=== PATIENT | male | born 1975 | race African-American/Black ===

== ENCOUNTER 2018-03-16 16:45 | Inpatient (IN) ==
[2018-03-16] MEDS ORDERED: KETOROLAC 30 MG/1 ML VIAL IV STA (18:33)
[2018-03-16] MEDS ORDERED: METOCLOPRAMIDE 10 MG/2 ML VIAL IV STA (18:33)
[2018-03-16] MEDS ORDERED: diphenhydrAMINE 50 MG/1 ML VIAL IV STA (18:33)
[2018-03-16] MEDS ORDERED: SODIUM CHLORIDE 0.9% 1,000 ML IV STA (18:33)
[2018-03-16] MEDS ORDERED: METOCLOPRAMIDE 10 MG/2 ML VIAL ONE (19:00)
[2018-03-16] MEDS ORDERED: diphenhydrAMINE 50 MG/1 ML VIAL ONE (19:00)
[2018-03-16] MEDS ORDERED: KETOROLAC 30 MG/1 ML VIAL ONE (19:00)
[2018-03-16 19:05] LABS: Basophils % 0.5 % (0.0-0.8); Eosinophils % 0.3 % (0.00-10.9); Hematocrit 48.5 VOL% (42.0-52.0); Immature Granulocytes % 0.5 %; Immature Granulocytes Absolute 0.03 #; Lymphocytes # 1.2 10*3/uL (1.4-4.0); Lymphocytes % 17.6 % (21.2-54.2); Mean Corpuscular Hemoglobin 27 PG (27-34); Mean Corpuscular Volume 82.2 FL (87-102); Mean Platelet Volume 11.1 FL (9.6-12.0); Monocytes # 0.5 10*3/uL (0.11-0.8); Monocytes % 7.6 % (1.7-12.7); Neutrophils # 4.8 10*3/uL (1.4-7.4); Neutrophils % 73.5 % (38.7-73.9); Platelet Count 253 T/CUMM (130-400); Red Cell Distribution Width 12.5 % (9.3-17.3); White Blood Count 6.5 T/CUMM (4-12)
[2018-03-16 19:09] LABS: Apearance,Urine CLEAR (Clear); Bilirubin,Urine Negative (Negative); Blood, Urine Negative (Negative); Glucose,Urine (UA) Negative (Negative); Ketones,Urine 5 mg/dL (Negative); Nitrite,Urine Negative (Negative); Protein,Urine Negative; Urine Color Straw (Yellow); Urine Specific Gravity 1.004 (1.001-1.035); Urine Urobilinogen < 2.0 EU/DL (0.2-1.0); WBC,Urine <1 /HPF (0-6)
[2018-03-16 19:32] LABS: Lymphocytes 19 % (20-55); Platelet Estimate Normal; Segmented Neutrophils 77 % (50-85); Total Cells Counted 100
[2018-03-16 19:38] LABS: Albumin 4.4 G/DL (3.4-5.0); Bilirubin,Total 0.8 MG/DL (0.2-1.0); Calcium 9.5 MG/DL (8.5-10.1); Osmolality,Calculated 268.4 MOS/KG (273-304); Potassium 3.7 MMOL/L (3.5-5.1); Thyroid Stimulating Hormone 0.415 uIU/ml (0.358-3.74); Total Protein 8.7 G/DL (6.4-8.3)
[2018-03-16] MEDS ORDERED: ACETAMINOPHEN 325 MG/10.15 ML UDCUP PO STA (19:41)
[2018-03-16] MEDS ORDERED: ACETAMINOPHEN 500 MG TABLET PO STA (19:42)
[2018-03-16] MEDS ORDERED: ACETAMINOPHEN 500 MG TABLET ONE (19:46)
[2018-03-16] MEDS ORDERED: SUMAtriptan 6 MG/0.5 ML VIAL SUBCUT STA (20:28)
[2018-03-16] MEDS ORDERED: diphenhydrAMINE CAP 25 MG CAPSULE PO PRN (21:46)
[2018-03-16] MEDS ORDERED: ONDANSETRON 4 MG/2 ML VIAL IV PRN (21:46)
[2018-03-16] MEDS ORDERED: traZODone 50 MG TABLET PO PRN (21:46)
[2018-03-16] MEDS ORDERED: cefTRIAXone 1,000 MG in SYRINGE 1 EACH IV SCH (22:00)
[2018-03-16] MEDS ORDERED: ACYCLOVIR INJ 1,000 MG in SODIUM CHLORIDE 0.9% 250 ML IV SCH (22:00)
[2018-03-17] MEDS: ATORVASTATIN 40 MG TABLET PO SCH ×2 (00:36→21:15)
[2018-03-17] MEDS: ACYCLOVIR INJ 1,000 MG in SODIUM CHLORIDE 0.9% 250 ML IV SCH ×3 (00:41→23:51)
[2018-03-17] MEDS: VANCOMYCIN INJ 1,500 MG in SODIUM CHLORIDE 0.9% 500 ML IV SCH ×2 (03:04→14:41)
[2018-03-17] MEDS: ACETAMINOPHEN 325 MG TABLET PO PRN ×2 (05:42→11:20)
[2018-03-17 07:03] LABS: Risk Ratio 6.29; VLDL CHOLESTEROL 42.8 MG/DL
[2018-03-17] MEDS: hydroCHLOROthiazide 12.5 MG CAPSULE PO SCH (08:21)
[2018-03-17] MEDS: ASPIRIN 325 MG TABLET PO SCH (08:21)
[2018-03-17] MEDS: amLODIPine 10 MG TABLET PO SCH (08:21)
[2018-03-17 08:34] LABS: Barbiturates Screen,Urine Negative (Negative); Benzodiazepines Screen,Urine Negative (Negative); Cannabinoid Screen,Urine Negative (Negative); Opiate Screen,Urine Negative (Negative); Phencyclidine Screen,Urine Negative (Negative)
[2018-03-17] MEDS: cefTRIAXone 2,000 MG in SYRINGE 1 EACH IV SCH (14:41)
[2018-03-17 15:00] LABS: Glucose,CSF 86 MG/DL (40-70)
[2018-03-17 15:43] LABS: Lymphocytes,CSF 44 %; Neutrophils,CSF 56 %
[2018-03-17 15:44] LABS: Red Blood Cell,CSF 9 C/CUMM; White Blood Cell,CSF 115 C/CUMM
[2018-03-17 17:34] LABS: Appearance,CSF Clear
[2018-03-17] MEDS ORDERED: ACETAMINOPHEN 325 MG TABLET PO PRN (18:52)
[2018-03-17] MEDS: AMPICILLIN INJ 2,000 MG in SODIUM CHLORIDE 0.9% 100 ML IV SCH (19:43)
[2018-03-18] MEDS: cefTRIAXone 2,000 MG in SYRINGE 1 EACH IV SCH ×2 (02:10→13:01)
[2018-03-18] MEDS: AMPICILLIN INJ 2,000 MG in SODIUM CHLORIDE 0.9% 100 ML IV SCH ×3 (02:14→13:02)
[2018-03-18] MEDS: VANCOMYCIN INJ 1,500 MG in SODIUM CHLORIDE 0.9% 500 ML IV SCH (03:24)
[2018-03-18 05:53] LABS: Basophils % 0.3 % (0.0-0.8); Eosinophils % 0.1 % (0.00-10.9); Hematocrit 41.9 VOL% (42.0-52.0); Hemoglobin 13.5 GM/DL (14.0-18.0); Immature Granulocytes % 0.3 %; Immature Granulocytes Absolute 0.03 #; Lymphocytes # 1.8 10*3/uL (1.4-4.0); Lymphocytes % 18.1 % (21.2-54.2); Mean Corpuscular HGB Conc 32.2 GM/DL (32-36); Mean Corpuscular Hemoglobin 27 PG (27-34); Mean Platelet Volume 11.4 FL (9.6-12.0); Monocytes # 1.3 10*3/uL (0.11-0.8); Monocytes % 13.6 % (1.7-12.7); Neutrophils # 6.6 10*3/uL (1.4-7.4); Neutrophils % 67.6 % (38.7-73.9); Platelet Count 232 T/CUMM (130-400); Red Blood Count 5.05 MC/CUMM (3.8-5.5); Red Cell Distribution Width 12.7 % (9.3-17.3); White Blood Count 9.8 T/CUMM (4-12)
[2018-03-18 06:19] LABS: Calcium 8.4 MG/DL (8.5-10.1); Osmolality,Calculated 275.7 MOS/KG (273-304); Potassium 3.5 MMOL/L (3.5-5.1)
[2018-03-18] MEDS: ASPIRIN 325 MG TABLET PO SCH (08:08)
[2018-03-18] MEDS: amLODIPine 10 MG TABLET PO SCH (08:08)
[2018-03-18] MEDS: hydroCHLOROthiazide 12.5 MG CAPSULE PO SCH (08:08)
[2018-03-18] MEDS: ACYCLOVIR INJ 1,000 MG in SODIUM CHLORIDE 0.9% 250 ML IV SCH (10:37)
[2018-03-18] MEDS: VANCOMYCIN INJ 1,750 MG in SODIUM CHLORIDE 0.9% 500 ML IV SCH (16:04)
[2018-03-18] MEDS: ATORVASTATIN 40 MG TABLET PO SCH (21:49)
[2018-03-19] MEDS: AMPICILLIN INJ 2,000 MG in SODIUM CHLORIDE 0.9% 100 ML IV SCH ×4 (00:03→14:38)
[2018-03-19] MEDS: ACYCLOVIR INJ 1,000 MG in SODIUM CHLORIDE 0.9% 250 ML IV SCH ×2 (00:04→12:19)
[2018-03-19] MEDS: cefTRIAXone 2,000 MG in SYRINGE 1 EACH IV SCH ×2 (03:34→15:02)
[2018-03-19 05:54] LABS: Basophils % 0.3 % (0.0-0.8); Eosinophils % 0.2 % (0.00-10.9); Hematocrit 42.7 VOL% (42.0-52.0); Hemoglobin 14.3 GM/DL (14.0-18.0); Immature Granulocytes % 0.5 %; Immature Granulocytes Absolute 0.05 #; Lymphocytes # 1.4 10*3/uL (1.4-4.0); Lymphocytes % 15.7 % (21.2-54.2); Mean Corpuscular HGB Conc 33.5 GM/DL (32-36); Mean Corpuscular Hemoglobin 27 PG (27-34); Mean Corpuscular Volume 80.3 FL (87-102); Mean Platelet Volume 10.9 FL (9.6-12.0); Monocytes # 0.9 10*3/uL (0.11-0.8); Monocytes % 9.3 % (1.7-12.7); Neutrophils # 6.8 10*3/uL (1.4-7.4); Platelet Count 265 T/CUMM (130-400); Red Blood Count 5.32 MC/CUMM (3.8-5.5); Red Cell Distribution Width 12.4 % (9.3-17.3); White Blood Count 9.2 T/CUMM (4-12)
[2018-03-19 06:24] LABS: Calcium 8.6 MG/DL (8.5-10.1); Osmolality,Calculated 274.8 MOS/KG (273-304); Potassium 3.6 MMOL/L (3.5-5.1)
[2018-03-19 07:19] LABS: HIV Antigen/Antibody Result Nonreactive (Nonreactive)
[2018-03-19] MEDS: ASPIRIN 325 MG TABLET PO SCH (08:59)
[2018-03-19] MEDS: amLODIPine 10 MG TABLET PO SCH (08:59)
[2018-03-19] MEDS: hydroCHLOROthiazide 12.5 MG CAPSULE PO SCH (08:59)
[2018-03-19] MEDS: VANCOMYCIN INJ 1,750 MG in SODIUM CHLORIDE 0.9% 500 ML IV SCH ×2 (09:02→21:49)
[2018-03-19] MEDS ORDERED: ZIPRASIDONE 20 MG/1 ML VIAL IM ONE (09:09)
[2018-03-19] MEDS: methylPREDNISolone SOD SUC 125 MG/2 ML VIAL IV SCH ×2 (10:21→21:46)
[2018-03-19] MEDS ORDERED: SODIUM CHLORIDE 0.65% NASAL SPRAY 45 ML BOTTLE BOTH NARES PRN (12:03)
[2018-03-19] MEDS ORDERED: DEXTROSE 50% 25 GM/50 ML VIAL IV PRN (15:05)
[2018-03-19] MEDS ORDERED: GLUCAGON 1 MG VIAL IM PRN (15:05)
[2018-03-19] MEDS: INSULIN LISPRO 100 UNIT/ML SUBCUT SCH (16:21)
[2018-03-19] MEDS: OMEGA 3 ACID ETHYL ESTERS 1 GM CAPSULE PO SCH (16:22)
[2018-03-19] MEDS: ATORVASTATIN 40 MG TABLET PO SCH (21:46)
[2018-03-20] MEDS: cefTRIAXone 2,000 MG in SYRINGE 1 EACH IV SCH ×2 (01:58→18:09)
[2018-03-20] MEDS: ACYCLOVIR INJ 1,000 MG in SODIUM CHLORIDE 0.9% 250 ML IV SCH ×2 (01:59→12:03)
[2018-03-20 06:36] LABS: Basophils % 0.1 % (0.0-0.8); Hematocrit 40.8 VOL% (42.0-52.0); Hemoglobin 13.5 GM/DL (14.0-18.0); Immature Granulocytes % 0.7 %; Immature Granulocytes Absolute 0.09 #; Lymphocytes % 8.6 % (21.2-54.2); Mean Corpuscular HGB Conc 33.1 GM/DL (32-36); Mean Corpuscular Hemoglobin 27 PG (27-34); Mean Corpuscular Volume 80.8 FL (87-102); Mean Platelet Volume 11.7 FL (9.6-12.0); Monocytes # 0.4 10*3/uL (0.11-0.8); Monocytes % 3.1 % (1.7-12.7); Neutrophils # 10.6 10*3/uL (1.4-7.4); Neutrophils % 87.5 % (38.7-73.9); Platelet Count 287 T/CUMM (130-400); Red Blood Count 5.05 MC/CUMM (3.8-5.5); Red Cell Distribution Width 12.1 % (9.3-17.3); White Blood Count 12.1 T/CUMM (4-12)
[2018-03-20 07:03] LABS: Calcium 8.5 MG/DL (8.5-10.1); Potassium 3.9 MMOL/L (3.5-5.1)
[2018-03-20] MEDS: INSULIN LISPRO 100 UNIT/ML SUBCUT SCH ×3 (08:00→18:13)
[2018-03-20] MEDS: ASPIRIN 325 MG TABLET PO SCH (09:02)
[2018-03-20] MEDS: methylPREDNISolone SOD SUC 125 MG/2 ML VIAL IV SCH ×2 (09:03→21:50)
[2018-03-20] MEDS: VANCOMYCIN INJ 1,750 MG in SODIUM CHLORIDE 0.9% 500 ML IV SCH ×2 (09:04→21:53)
[2018-03-20] MEDS: amLODIPine 10 MG TABLET PO SCH (09:05)
[2018-03-20] MEDS: OMEGA 3 ACID ETHYL ESTERS 1 GM CAPSULE PO SCH (09:13)
[2018-03-20] MEDS: hydroCHLOROthiazide 12.5 MG CAPSULE PO SCH (09:30)
[2018-03-20 14:42] LABS: VDRL Spinal Fluid Negative (Negative)
[2018-03-20] MEDS: ATORVASTATIN 40 MG TABLET PO SCH (21:53)
[2018-03-21] MEDS: cefTRIAXone 2,000 MG in SYRINGE 1 EACH IV SCH ×2 (03:04→15:14)
[2018-03-21 06:45] LABS: Basophils % 0.1 % (0.0-0.8); Hemoglobin 14.8 GM/DL (14.0-18.0); Immature Granulocytes % 0.9 %; Immature Granulocytes Absolute 0.13 #; Lymphocytes # 0.9 10*3/uL (1.4-4.0); Lymphocytes % 5.7 % (21.2-54.2); Mean Corpuscular HGB Conc 33.6 GM/DL (32-36); Mean Corpuscular Hemoglobin 27 PG (27-34); Mean Corpuscular Volume 80.4 FL (87-102); Mean Platelet Volume 11.6 FL (9.6-12.0); Monocytes # 0.3 10*3/uL (0.11-0.8); Monocytes % 1.7 % (1.7-12.7); Neutrophils # 13.8 10*3/uL (1.4-7.4); Neutrophils % 91.6 % (38.7-73.9); Platelet Count 310 T/CUMM (130-400); Red Blood Count 5.47 MC/CUMM (3.8-5.5); Red Cell Distribution Width 12.1 % (9.3-17.3); White Blood Count 15.1 T/CUMM (4-12)
[2018-03-21 07:11] LABS: Calcium 8.6 MG/DL (8.5-10.1); Osmolality,Calculated 279.8 MOS/KG (273-304); Potassium 3.8 MMOL/L (3.5-5.1)
[2018-03-21 07:17] LABS: Band Neutrophils 4 % (0-10); Hypochromasia 1+; Lymphocytes 5 % (20-55); Platelet Estimate Adequate; Segmented Neutrophils 88 % (50-85); Total Cells Counted 100
[2018-03-21] MEDS: OMEGA 3 ACID ETHYL ESTERS 1 GM CAPSULE PO SCH (09:58)
[2018-03-21] MEDS: ASPIRIN 325 MG TABLET PO SCH (09:58)
[2018-03-21] MEDS: amLODIPine 10 MG TABLET PO SCH (09:58)
[2018-03-21] MEDS: hydroCHLOROthiazide 12.5 MG CAPSULE PO SCH (09:58)
[2018-03-21] MEDS: methylPREDNISolone SOD SUC 125 MG/2 ML VIAL IV SCH (09:59)
[2018-03-21] MEDS: VANCOMYCIN INJ 1,750 MG in SODIUM CHLORIDE 0.9% 500 ML IV SCH ×2 (09:59→21:49)
[2018-03-21] MEDS: INSULIN LISPRO 100 UNIT/ML SUBCUT SCH ×2 (11:27→21:49)
[2018-03-21 15:06] LABS: M. Tuberculosis PCR Result Negative (Negative); M. Tuberculosis PCR Source CSF
[2018-03-21] MEDS ORDERED: methylPREDNISolone 4 MG TABLET PO SCH (17:00)
[2018-03-21] MEDS: methylPREDNISolone 4 MG TABLET PO SCH ×2 (17:41→21:48)
[2018-03-21] MEDS: ATORVASTATIN 40 MG TABLET PO SCH (21:48)
[2018-03-22] MEDS: cefTRIAXone 2,000 MG in SYRINGE 1 EACH IV SCH (01:51)
[2018-03-22 06:50] LABS: Basophils % 0.1 % (0.0-0.8); Hematocrit 39.3 VOL% (42.0-52.0); Hemoglobin 13.4 GM/DL (14.0-18.0); Immature Granulocytes % 0.6 %; Immature Granulocytes Absolute 0.08 #; Lymphocytes # 1.3 10*3/uL (1.4-4.0); Lymphocytes % 9.8 % (21.2-54.2); Mean Corpuscular HGB Conc 34.1 GM/DL (32-36); Mean Corpuscular Hemoglobin 27 PG (27-34); Mean Corpuscular Volume 79.7 FL (87-102); Mean Platelet Volume 11.4 FL (9.6-12.0); Monocytes # 0.6 10*3/uL (0.11-0.8); Monocytes % 4.7 % (1.7-12.7); Neutrophils # 11.1 10*3/uL (1.4-7.4); Neutrophils % 84.8 % (38.7-73.9); Platelet Count 319 T/CUMM (130-400); Red Blood Count 4.93 MC/CUMM (3.8-5.5); White Blood Count 13.1 T/CUMM (4-12)
[2018-03-22 07:23] LABS: Calcium 8.4 MG/DL (8.5-10.1); Osmolality,Calculated 282.7 MOS/KG (273-304); Potassium 3.6 MMOL/L (3.5-5.1)
[2018-03-22] MEDS ORDERED: hydroCHLOROthiazide 25 MG TABLET PO SCH (09:00)
[2018-03-22] MEDS: OMEGA 3 ACID ETHYL ESTERS 1 GM CAPSULE PO SCH (09:25)
[2018-03-22] MEDS: methylPREDNISolone 4 MG TABLET PO SCH (09:26)
[2018-03-22] MEDS: ASPIRIN 325 MG TABLET PO SCH (09:26)
[2018-03-22] MEDS: amLODIPine 10 MG TABLET PO SCH (09:26)
[2018-03-22] MEDS: VANCOMYCIN INJ 1,750 MG in SODIUM CHLORIDE 0.9% 500 ML IV SCH (09:27)
[2018-03-22 14:21] LABS: West Nile Virus Ab, IgG, CSF Negative (Negative)
[2018-03-22 14:31] LABS: West Nile Virus Ab, IgM, CSF Positive (Negative)
[2018-03-22 15:05] VITALS: BP 128/79
== END 2018-03-22 17:16 | disposition home or self-care (01) | DRG 866 ==
LOC: N.ED 16:45 → N.EDINP 16:45 → SUATTDRO 21:46 → N.EDINP 22:50 → N.5E 22:58
PROVIDERS: ADMIT Hospitalist; ATTEND Internal Medicine